=== PATIENT | male | born 2000 | race Two or more races ===

== ENCOUNTER 2021-11-25 23:22 | Emergency (ER) | payer MEDICAID ==
[~2021-11-25] VITALS: Ht 190.5 cm; Wt 80.6 kg
[2021-11-25 23:32] VITALS: BP 107/69
== END 2021-11-26 03:01 | disposition left against medical advice (07) ==
LOC: ER 23:23
DX: S01.112A Laceration without foreign body of left eyelid and periocular area, initial encounter (principal); Z53.21 Procedure and treatment not carried out due to patient leaving prior to being seen by health care provider; X58.XXXA Exposure to other specified factors, initial encounter; Y93.9 Activity, unspecified; Y92.9 Unspecified place or not applicable; Y99.9 Unspecified external cause status